=== PATIENT | female | born 1955 | race Two or more races ===

== ENCOUNTER 2017-06-17 05:33 | Emergency (ER) | payer MEDICAID ==
[~2017-06-17] VITALS: Ht 160 cm; Wt 63.5 kg
[2017-06-17] MEDS ORDERED: NKM (05:58)
[2017-06-17 06:07] VITALS: BP 127/81
[2017-06-17] MEDS ORDERED: IBUPROFEN600 MG ORAL (06:07)
[2017-06-17] MEDS ORDERED: PROMETHAZINE-C118 M1 ORAL (06:07)
[2017-06-17] MEDS ORDERED: AUGMENTIN 875-1 EAC1 ORAL (06:07)
--- NOTE | 2017-06-20 00:07 | Emergency Room Report ---
History of Present Illness General Chief Complaint: Fever Source: Patient Present Illness HPI 62YOf [employer] patient with 2-3 days cough, myalgias, fever/chills at home Non-smoker Denies COPD, CHF history Not takign OTC meds Couldnt see PMD Allergies: Coded Allergies: No Known Allergies (Unverified , 06/17/17) Patient History Past Medical History: none Past Surgical History: none Pertinent Family History: none Social History: Denies: alcohol use, drug use, smoking Last Menstrual Period: n/a Now: No Immunizations: UTD Reviewed Nursing Documentation: PMH: Agreed, PSxH: Agreed Nursing Documentation-PMH Past Medical History: No Stated History Review of Systems All Other Systems: negative except mentioned in HPI Physical Exam Vital Signs Date Time Temp Pulse Resp B/P Pulse Ox O2 Delivery O2 Flow Rate FiO2 06/17/17 05:53 100.4 118 20 127/81 97 Room Air Sp02 EP Interpretation: reviewed, normal General Appearance: normal inspection, well appearing, no apparent distress, alert, GCS 15 Head: normocephalic, atraumatic Eyes: bilateral eye EOMI, bilateral eye PERRL ENT: normal ENT inspection, hearing grossly normal, normal voice Neck: normal inspection, full range of motion, supple, no bony tend Respiratory: normal inspection, lungs clear, normal breath sounds, no rhonchi, no respiratory distress, no retraction, no accessory muscle use, no wheezing, speaking full sentences Cardiovascular #1: regular rate, rhythm, no edema Gastrointestinal: normal inspection, normal bowel sounds, non tender, soft, no guarding, no hernia Genitourinary: no CVA tenderness Musculoskeletal: normal inspection, back normal, normal range of motion, Yoana' s Sign negative Neurologic: normal inspection, alert, oriented x3, responsive, satellite television installer III-XII nml as tested, motor strength/tone normal, speech normal Psychiatric: normal inspection, judgement/insight normal, mood/affect normal Skin: normal inspection, normal color, no rash Medical Decision Making Diagnostic Impression: Primary Impression: Fever Qualified Codes: R50.9 - Fever, unspecified Additional Impression: Cough ER Course 62YOF presents with fever,cough for 2-3 days Lungs CTAB Not systemically ill ?CAP Rx Abx, supportive meds Close PMD followup DC home Last Vital Signs Date Time Temp Pulse Resp B/P Pulse Ox O2 Delivery O2 Flow Rate FiO2 06/17/17 06:14 100.4 20 127/81 97 Room Air 06/17/17 05:53 118 Status: improved Disposition: HOME, SELF-CARE Condition: Improved Scripts Ibuprofen* (MOTRIN*) 600 Mg Tablet 600 MG ORAL THREE TIMES A DAY for sore throat, body aches for 7 Days, #30 TAB 0 Refills Prov: JEFFREY VAZQUEZ M.D. 06/17/17 Codeine/Promethazine Hcl* (PROMETHAZINE-CODEINE SYRUP*) 118 Ml Syrup 5 ML ORAL Q4H Y for For Cough for 7 Days, #120 ML 0 Refills Prov: JEFFREY VAZQUEZ M.D. 06/17/17 Amoxicillin/Potassium Clav 875-125* (AUGMENTIN 875-125 TABLET*) 1 Each Tablet 1 TAB ORAL TWICE A DAY for 7 Days, #14 TAB Prov: JEFFREY VAZQUEZ M.D. 06/17/17 Referrals: [facility] (PCP) Patient Instructions: Fever, Adult Additional Instructions: - Take Augmentin antibiotic until finished - Cough syrup as needed - Ibuprofen up to 3x a day for fever/chills, body aches, sore throat JEFFREY VAZQUEZ M.D. Jun 20, 2017 00:07
== END 2017-06-17 06:10 | disposition home or self-care (01) ==
LOC: EMR 06:05
DX: R50.9 Fever, unspecified (principal); R05 Cough
CPT/HCPCS: 99284

== ENCOUNTER 2017-07-14 07:21 | Emergency (ER) | payer MEDICAID ==
[~2017-07-14] VITALS: Ht 160 cm; Wt 63.5 kg
[~2017-07-14 07:21] MED LIST: AUGMENTIN 875-1 EAC1 ORAL; IBUPROFEN600 MG ORAL; NKM; PROMETHAZINE-C118 M1 ORAL
[2017-07-14 07:26] VITALS: BP 120/85
[2017-07-14] MEDS ORDERED: PROMETHAZINE-C118 M1 ORAL (07:53)
[2017-07-14] MEDS ORDERED: VENTOLIN HFA18 GM INH (07:53)
--- NOTE | 2017-07-14 08:02 | Emergency Room Report ---
History of Present Illness General Chief Complaint: Upper Respiratory Illness Source: Patient Present Illness HPI 62 YOF walkin with continued cough for 1 month No fever/chills, SOB, chest pain Was here recently Took Abx, felt better Denies sick contacts Denies sore throat, ear ache Denies COPD, smoking Allergies: Coded Allergies: No Known Allergies (Unverified , 06/17/17) Patient History Past Medical History: none Past Surgical History: none Pertinent Family History: none Social History: Denies: smoking, alcohol use, drug use Last Menstrual Period: menopause Now: No Immunizations: UTD Reviewed Nursing Documentation: PMH: Agreed, PSxH: Agreed Nursing Documentation-PMH Past Medical History: No Stated History Review of Systems All Other Systems: negative except mentioned in HPI Physical Exam Vital Signs Date Time Temp Pulse Resp B/P (MAP) Pulse Ox O2 Delivery O2 Flow Rate FiO2 07/14/17 07:26 98.6 68 18 120/85 97 Room Air Sp02 EP Interpretation: reviewed, normal General Appearance: normal inspection, well appearing, no apparent distress, alert, GCS 15, non-toxic Head: normocephalic, atraumatic Eyes: bilateral eye PERRL, bilateral eye EOMI ENT: normal ENT inspection, hearing grossly normal, normal voice Neck: normal inspection, full range of motion, supple, no bony tend Respiratory: normal inspection, lungs clear, normal breath sounds, no respiratory distress, no retraction, no accessory muscle use, no wheezing, speaking full sentences Cardiovascular #1: regular rate, rhythm, no edema Gastrointestinal: normal inspection, normal bowel sounds, non tender, soft, no guarding, no hernia Genitourinary: no CVA tenderness Musculoskeletal: normal inspection, back normal, normal range of motion, Yoana' s Sign negative Neurologic: normal inspection, alert, oriented x3, responsive, hand worker III-XII nml as tested, motor strength/tone normal, speech normal Psychiatric: normal inspection, judgement/insight normal, mood/affect normal Skin: normal inspection, normal color, no rash Medical Decision Making Diagnostic Impression: Primary Impression: Cough ER Course VSS. Afebrile Lungs CTAB No systemic signs and symptoms Very well appearing Likely continued bronchitis Will rx albuterol, cough syrup PMD Followup Last Vital Signs Date Time Temp Pulse Resp B/P (MAP) Pulse Ox O2 Delivery O2 Flow Rate FiO2 07/14/17 07:38 67 16 Room Air 07/14/17 07:26 98.6 120/85 97 Status: improved Disposition: HOME, SELF-CARE Condition: Improved Scripts Albuterol Sulfate (VENTOLIN HFA) 18 Gm Hfa.aer.ad 1 PUFF INH EVERY 6 HOURS, #18 GM 0 Refills Prov: JEFFREY VAZQUEZ M.D. 07/14/17 Codeine/Promethazine Hcl* (PROMETHAZINE-CODEINE SYRUP*) 118 Ml Syrup 5 ML ORAL Q4H Y for For Cough for 7 Days, #120 ML 0 Refills Prov: JEFFREY VAZQUEZ M.D. 07/14/17 Referrals: [facility] (PCP) Patient Instructions: Upper Respiratory Infection, Adult, Chronic Bronchitis Additional Instructions: - You do not have a fever, your lungs are CLEAR, you ALREADY took antibiotics. You do not have a bacterial infection requiring antibiotics at this time. - Use albuterol inhaler up 3x a day for cough - Use cough syrup as prescribed as well - Follow up with your primary care doctor in 1 month JEFFREY VAZQUEZ M.D. Jul 14, 2017 08:02
[2017-07-14 08:04] VITALS: BP 124/82
== END 2017-07-14 08:05 | disposition home or self-care (01) ==
LOC: EMR 07:48
DX: R05 Cough (principal)
CPT/HCPCS: 99284

== ENCOUNTER 2017-09-08 13:31 | Emergency (ER) | payer MEDICAID ==
[~2017-09-08] VITALS: Ht 149.9 cm; Wt 64.4 kg
[~2017-09-08 13:31] MED LIST changes: +VENTOLIN HFA18 GM INH
[2017-09-08 13:43] VITALS: BP 121/76
--- NOTE | 2017-09-08 14:39 | Emergency Room Report ---
History of Present Illness General Chief Complaint: Upper Respiratory Illness Source: Patient Present Illness HPI 62-year-old female presents to the ED c/o chronic dry cough x 2 weeks with increased burning sensation after meals, hx of GERD. denies fevers, chills, body aches. pt. reports Sore throat that is irritated and exacerbated with eating. Denies abdominal pain, rashes, nausea or vomiting . Denies recent travel or ill contacts. PT. states she has also noticed intermittent burning/ tingling sensations in the bilateral hands x over a month that seem to have increased in frequency, lasting several seconds then resolving, denies weakness in the grasping, denies skin color changes in the hands. denies trauma, fall or neck pain, no hx of neck pain. Denies swelling of the lower extremities Denies CP, Palpitations, LOC, AMS, dizziness, Changes in Vision, Sensation, paresthesias, or a sudden severe headache. Allergies: Coded Allergies: No Known Allergies (Unverified , 06/17/17) Patient History Past Medical History: see triage record, GERD Past Surgical History: none Pertinent Family History: none Now: No Immunizations: UTD Reviewed Nursing Documentation: PMH: Agreed, PSxH: Agreed Nursing Documentation-PMH Past Medical History: No Stated History Review of Systems All Other Systems: negative except mentioned in HPI Physical Exam Vital Signs Date Time Temp Pulse Resp B/P (MAP) Pulse Ox O2 Delivery O2 Flow Rate FiO2 09/08/17 13:43 97.3 75 20 121/76 97 Room Air Sp02 EP Interpretation: reviewed, normal General Appearance: no apparent distress, alert, GCS 15, non-toxic Head: normocephalic, atraumatic Eyes: bilateral eye normal inspection, bilateral eye PERRL ENT: hearing grossly normal, normal pharynx, normal voice, pharyngeal erythema Neck: full range of motion, supple/symm/no masses Respiratory: lungs clear, normal breath sounds, no rhonchi, no respiratory distress, no wheezing, speaking full sentences Cardiovascular #1: regular rate, rhythm, normal capillary refill Cardiovascular #2: 2+ radial (R), 2+ radial (L) Gastrointestinal: normal bowel sounds, non tender, soft, no guarding, no rebound Rectal: deferred Musculoskeletal: back normal, gait/station normal, normal range of motion, non- tender Neurologic: alert, oriented x3, responsive, motor strength/tone normal, sensory intact, normal gait, speech normal, other - equal branch operations manager strength, grossly normal Reflexes: 4+ bicep (R), 4+ bicep (L), 4+ tricep (R), 4+ tricep (L), 4+ knee (R) , 4+ knee (L), 4+ ankle (R), 4+ ankle (L) Skin: normal color, no rash, warm/dry, well hydrated Lymphatic: no adenopathy Medical Decision Making PA Attestation Dr. Vasques is my supervising Physician whom patient management has been discussed with. Diagnostic Impression: Primary Impression: Laryngitis from reflux of stomach acid Additional Impressions: Acid reflux Qualified Codes: K21.0 - Gastro-esophageal reflux disease with esophagitis Cough ER Course 62-year-old female presents to the ED c/o chronic dry cough x 2 weeks with increased burning sensation after meals, hx of GERD. denies fevers, chills, body aches. pt. reports Sore throat that is irritated and exacerbated with eating. Denies abdominal pain, rashes, nausea or vomiting . Denies recent travel or ill contacts. PT. states she has also noticed intermittent burning/ tingling sensations in the bilateral hands x over a month that seem to have increased in frequency, lasting several seconds then resolving, denies weakness in the grasping, denies skin color changes in the hands. denies trauma, fall or neck pain, no hx of neck pain. Denies swelling of the lower extremities Denies CP, Palpitations, LOC, AMS, dizziness, Changes in Vision, Sensation, paresthesias, or a sudden severe headache. Ddx considered but are not limited to GE, pneumonia, viral URI, esophagitis, orthopnea, CHF, atypical pneumonia, pharyngitis, neuropathy, radiculopathy, carpal tunnel syndrome, vitamine def, just to name a few. Vital signs: pt. is afebrile, H&PE are most consistent with cough secondary to GERD. Lungs are CTA bilaterally, afebrile, non-toxic in appearance, erythematous pharynx no evidence of bacterial infection at this time, no obvious neurological deficit, equal and strong branch operations manager strength. ORDERS: -None required at this time, the dx is clinical. ED INTERVENTIONS: -PT. Education: d/w pt. conservative treatment to reduce acid reflux, however PCP and GI consult is important in managing her symptoms, and keeping them under control to prevent complications. D/w pt. to follow up with PMD regarding symptoms in her hands if they continue, otherwise make sure to eat a healthy diet with all nutrients and vitamins. return to the ed with worsening or new symptoms. DISCHARGE: At this time pt. is stable for d/c to home. Will provide printed patient care instructions, and any necessary prescriptions. Care plan and follow up instructions have been discussed with the patient prior to discharge. Last Vital Signs Date Time Temp Pulse Resp B/P (MAP) Pulse Ox O2 Delivery O2 Flow Rate FiO2 09/08/17 13:43 97.3 75 20 121/76 97 Room Air Disposition: HOME, SELF-CARE Condition: Stable Scripts Codeine/Promethazine Hcl* (PROMETHAZINE-CODEINE SYRUP*) 118 Ml Syrup 5 ML ORAL Q6H Y for For Cough, #120 ML 0 Refills Prov: Leatha Lopez 09/08/17 Ranitidine Hcl* (ZANTAC*) 150 Mg Tablet 150 MG ORAL TWICE A DAY, #60 TAB Prov: Leatha Lopez 09/08/17 Omeprazole (OMEPRAZOLE) 20 Mg Tablet.dr 20 MG ORAL DAILY, #30 TAB Prov: Leatha Lopez 09/08/17 Patient Instructions: Esophagitis, Food Choices for Gastroesophageal Reflux Disease, Adult, Gastroesophageal Reflux Disease, Adult Additional Instructions: Take medications as directed. Follow up with a Primary Care Provider in 3-5 days, even if your symptoms have resolved. --Please review list of primary care clinics, if you do not already have a primary care provider Return sooner to ED if new symptoms occur, or current symptoms become worse. Do not drink alcohol, drive, or operate heavy machinery while taking Cough Syrup as this may cause drowsiness. - Please note that this Emergency Department Report was dictated using [employer] engine assembler technology software, occasionally this can lead to erroneous entry secondary to interpretation by the dictation equipment. Leatha Lopez Sep 08, 2017 14:39
[2017-09-08] MEDS ORDERED: OMEPRAZOLE20 M3 ORAL (14:41)
[2017-09-08] MEDS ORDERED: PROMETHAZINE-C118 M1 ORAL (14:41)
[2017-09-08] MEDS ORDERED: ZANTAC150 MG ORAL (14:41)
[2017-09-08 14:55] VITALS: BP 121/76
== END 2017-09-08 14:56 | disposition home or self-care (01) ==
LOC: EMR 14:56
DX: K21.9 Gastro-esophageal reflux disease without esophagitis (principal); J04.0 Acute laryngitis; R05 Cough
CPT/HCPCS: 99284

== ENCOUNTER 2017-12-09 10:42 | Emergency (ER) | payer MEDICAID ==
[~2017-12-09] VITALS: Ht 157.5 cm; Wt 63.5 kg
[~2017-12-09 10:42] MED LIST changes: +OMEPRAZOLE20 M3 ORAL; +ZANTAC150 MG ORAL
[2017-12-09 10:53] VITALS: BP 122/60
--- NOTE | 2017-12-09 11:17 | Emergency Room Report ---
History of Present Illness General Chief Complaint: Flu Like Symptoms Source: Patient Present Illness HPI Patient with 2 days of URI sy. No color to phlegm. Min sore throat. Muscle aches. No wheezing. Not receive flu shot. No NVD, dysuria. Not smoke. No dysuria. No known cardiac disease. Concerned about getting work note. Allergies: Coded Allergies: No Known Allergies (Unverified , 06/17/17) Patient History Past Medical History: see triage record Social History: Denies: smoking Social History Narrative Reviewed Nursing Documentation: PMH: Agreed, PSxH: Agreed Nursing Documentation-PMH Past Medical History: No Stated History Review of Systems All Other Systems: negative except mentioned in HPI Physical Exam Vital Signs Date Time Temp Pulse Resp B/P (MAP) Pulse Ox O2 Delivery O2 Flow Rate FiO2 12/09/17 10:47 97.5 88 20 124/68 96 Room Air Sp02 EP Interpretation: reviewed, normal General Appearance: well appearing, no apparent distress Head: normocephalic, atraumatic ENT: hearing grossly normal, normal voice, moist mucus membranes, pharyngeal erythema Neck: full range of motion, supple Respiratory: no respiratory distress, speaking full sentences Cardiovascular #1: regular rate, rhythm Gastrointestinal: normal inspection, normal bowel sounds, non tender Musculoskeletal: gait/station normal, normal range of motion, no calf tenderness Neurologic: alert, oriented x3, normal gait, grossly normal Psychiatric: mood/affect normal Skin: no rash Medical Decision Making Diagnostic Impression: Primary Impression: Influenza ER Course Patient with recent onset of URI. DDx: flu, other viral, PNA, bronchitis amongst others. No bronchospasm. Based on exam, doubt PNA, but will check CXR. Also due to age and gender, EKG ordered. EKG no injury. CXR no infiltrate. Clinical dx influenza. Improved with treatment here. Patient stable for outpatient observation and treatment. EKG Diagnostic Results Rate: normal Rhythm: NSR ST Segments: no acute changes Rhythm Strip Diag. Results EP Interpretation: yes Rhythm: NSR, no PVC's, no ectopy Chest X-Ray Diagnostic Results Chest X-Ray Diagnostic Results : Chest X-Ray Ordered: Yes # of Views/Limited/Complete: 1 View Indication: Other EP Interpretation: Yes Interpretation: no consolidation, no effusion, no pneumothorax, no acute cardiopulmonary disease Impression: No acute disease Electronically Signed by: Rashid Escalona MD Last Vital Signs Date Time Temp Pulse Resp B/P (MAP) Pulse Ox O2 Delivery O2 Flow Rate FiO2 12/09/17 13:13 84 16 110/70 98 12/09/17 10:53 Room Air 12/09/17 10:47 97.5 Status: improved Disposition: HOME, SELF-CARE Condition: Improved Scripts Oseltamivir Phosphate (Tamiflu) 75 Mg Capsule 75 MG ORAL TWICE A DAY, #10 CAP Prov: Rashid Escalona M.D. 12/09/17 Guaifenesin/Codeine Phos* (ROBITUSSIN AC*) 118 Ml Liquid 5 ML ORAL Q6H Y for For Cough, #60 ML 0 Refills Prov: Rashid Escalona M.D. 12/09/17 Rashid Escalona M.D. Dec 09, 2017 11:17
[2017-12-09] MEDS ORDERED: guaiFENesin w/Codeine 5ml Liq ud ORAL PRN (11:30)
[2017-12-09] MEDS ORDERED: TAMIFLU75 MG ORAL (12:18)
[2017-12-09] MEDS ORDERED: GUAIFENESIN-CO118 M1 ORAL (12:18)
[2017-12-09 13:13] VITALS: BP 110/70
--- NOTE | 2017-12-09 13:43 | Diagnostic Imaging Report ---
Indication: Cough, chest pain Technique: One view of the chest Comparison: Findings: Lungs and pleural spaces are clear. Heart size is normal. Calcified granuloma projects at the left lung base Impression: No acute process
--- NOTE | 2017-12-10 19:02 | Cardiology Report ---
APPROVED REPORT EKG Measurement Heart [id number] [id number] Normal sinus rhythm Left axis deviation Abnormal ECG
== END 2017-12-09 12:40 | disposition home or self-care (01) ==
LOC: EMR 11:55
DX: J11.1 Influenza due to unidentified influenza virus with other respiratory manifestations (principal)
CPT/HCPCS: 71045; 93005; 99284